=== PATIENT | male | born 1950 | race Caucasian/White ===

== ENCOUNTER 2024-10-12 06:29 | Emergency (ER) | payer OTHER ==
[2024-10-12 06:40] VITALS: RESP 18; TEMP 98.1; BMI 22.6
[2024-10-12 08:54] LABS: EPI CELLS 14 /uL (0-25.1); HYALINE CASTS 1 /uL (0-3.1); URINE APPEARANCE CLOUDY; URINE BILIRUBIN 1+ (NEGATIVE); URINE COLOR ORANGE; URINE GLUCOSE (UA) NEGATIVE (NEGATIVE); URINE KETONE NEGATIVE (NEGATIVE); URINE LEUK ESTERASE 2+ (NEGATIVE); URINE NITRITE POSITIVE (NEGATIVE); URINE PROTEIN 3+ (NEGATIVE); URINE UROBILINOGEN 0.2 mg/dL (0.2-1.0); URINE WBC 233 /uL (0-25.8)
[2024-10-12 09:35] VITALS: BP 135/69; PULSE 78
[2024-10-12 09:56] LABS: URINE BACTERIA 0 /uL (0-1359); URINE RBC 14943.9 /uL (0-23.9); YEAST NONE SEEN (NEGATIVE)
== END 2024-10-12 09:30 | disposition home or self-care (01) ==
LOC: JER 06:29
PROC: 0T9B70Z Drainage of Bladder with Drainage Device, Via Natural or Artificial Opening (ICD-10-PCS; principal; 2024-10-12)
DX: R39.198 Other difficulties with micturition (principal); R30.9 Painful micturition, unspecified; R31.9 Hematuria, unspecified
CPT/HCPCS: 81003; 87086; 99283-25